=== PATIENT | male | born 1990 | race Caucasian/White ===

== ENCOUNTER → 2017-01-28 | Outpatient (CLI) | payer OTHER ==
[~2017-01-28] MED LIST: CELE20TA PO; TRAZ50TA11 PO; TRIL1TAB PO; no home meds
[2017-01-28 18:05] LABS: MEAN CORPUSCULAR HEMOGLOBIN 30.3 pg (27.0-33.0); MEAN CORPUSCULAR HGB CONC 32.8 g/dl (32.0-36.5); MEAN CORPUSCULAR VOLUME 92.5 fl (80.0-96.0); PLATELET COUNT, AUTOMATED 286 10^3/uL (150-450); WHITE BLOOD COUNT 10.6 10^3/uL (4.0-10.0)
[2017-01-28 18:15] LABS: ANION GAP 6 MEQ/L (8-16); BLOOD UREA NITROGEN 16 MG/DL (7-18); CALCIUM LEVEL 9.3 MG/DL (8.5-10.1); CARBON DIOXIDE LEVEL 30 MEQ/L (21-32); CHLORIDE LEVEL 103 MEQ/L (98-107); CREATININE FOR GFR 0.78 MG/DL (0.70-1.30); GLOMERULAR FILTRATION RATE > 60.0 (>60); GLUCOSE, FASTING 91 MG/DL (70-105); POTASSIUM SERUM 4.4 MEQ/L (3.5-5.1); SODIUM LEVEL 139 MEQ/L (136-145)
[2017-01-28 18:21] LABS: INR 0.91
== END ==
LOC: M LAB 16:23
PROVIDERS: ATTEND Urology
DX: Z01.818 Encounter for other preprocedural examination (principal); N50.9 Disorder of male genital organs, unspecified

== ENCOUNTER 2017-01-31 10:41 | Day surgery (SDC) | payer OTHER ==
[~2017-01-31] VITALS: Ht 177.8 cm; Wt 153.8 kg
[2017-01-31] MEDS ORDERED: LR 1,000 ML IV ONE (11:00)
[2017-01-31] MEDS ORDERED: BUPIVACAINE HCL 0.25% 30 ML VIAL As Ordered ONE (13:15)
[2017-01-31] MEDS ORDERED: LIDOCAINE 1% SDV INJ 30 ML VIAL As Ordered ONE (13:15)
[2017-01-31] MEDS ORDERED: fentaNYL 100 MCG/2 ML INJECTION (J3010) As Ordered ONE ×3 (15:15→17:24)
[2017-01-31] MEDS ORDERED: METOCLOPRAMIDE INJ 10MG/2ML VIAL (J2765) As Ordered ONE (15:15)
[2017-01-31] MEDS ORDERED: MIDAZOLAM INJ 2 MG/2 ML VIAL (J2250) As Ordered ONE (15:15)
[2017-01-31] MEDS ORDERED: PROPOFOL 200 MG/20 ML VIAL As Ordered ONE (15:15)
[2017-01-31] MEDS ORDERED: ONDANSETRON 4MG/2ML VIAL (J2405) As Ordered ONE (15:15)
[2017-01-31] MEDS ORDERED: LIDOCAINE 2% INJ 100 MG/5 ML SDV (FOR ANES.) As Ordered ONE (15:15)
[2017-01-31] MEDS ORDERED: dexameTHASONE 4 MG/ML 1ML VIAL (J1100) As Ordered ONE (16:03)
[2017-01-31] MEDS ORDERED: KETOROLAC 60 MG/2 ML VIAL (J1885) As Ordered ONE (16:42)
[2017-01-31] MEDS ORDERED: SUGAMMADEX SODIUM 500 MG/5 ML VIAL (BRIDION) As Ordered ONE (17:13)
[2017-01-31] MEDS: fentaNYL 100 MCG/2 ML INJECTION (J3010) IV PRN ×4 (17:30→17:45)
--- NOTE | 2017-01-31 17:39 | ROOPDOC ---
[facility] Report Of Operation Report of Operation DATE OF PROCEDURE: 01/31/17 PREPROCEDURE DIAGNOSIS: Left testicular mass. POSTPROCEDURE DIAGNOSIS: Left testicular mass. PROCEDURE: Left radical orchiectomy. SURGEON: Dr. Emanuel Winter SOLAR WATER HEATER INSTALLER: None. ANESTHESIA: General. OPERATIVE INDICATIONS: This is a 27-year-old male who was recently found to have an enlarged left testicle with multiple masses. Given the likelihood that he has testicular cancer, it was recommended that he be brought to the operating room today for the above-listed procedure. DESCRIPTION OF PROCEDURE: The patient was brought to the operating room, and general anesthesia was induced. Prophylactic antibiotics were infused. He was then placed in supine position and prepped and draped in the usual sterile fashion. At this point, a 7 cm incision was made overlying the left external ring. We then dissected down through the subcutaneous tissues using Bovie electrocautery. Once we got down to the external oblique aponeurosis, this was opened using Metzenbaum scissors. We made sure not to damage the ilioinguinal nerve. At this point, a right-angle clamp was passed posterior to the spermatic cord, and a Magda drain was wrapped around it twice. This was then clamped. We then delivered the testicle out of the scrotum and through our inguinal incision. Then gubernacular fibers were release using electrocautery. We continued to release fibers until the testicle was free from the scrotum. The spermatic cord was then traced up to the area where the Aydlett drain had been placed. We tried to make sure we had good hemostasis while doing this. The spermatic cord was then freed up to the level of the internal ring. At this point, a right-angle clamp was placed across the spermatic cord. The cord was then suture ligated with an #0 silk suture. This was cut long. The cord was then divided into two separate packets distal to our #0 silk suture ligature. These packets were then separately ligated with #0 silk sutures. The cord was then transected distal to the #0 silk sutures. The left testicle and spermatic cord were then handed off the table to sent for pathologic analysis. At this point, the wound was irrigated. We closed the external oblique fascia using a running #2-0 Vicryl suture. Next, subcutaneous tissues were reapproximated with interrupted #2-0 chromic sutures. Skin was then closed with subcuticular #4-0 Monocryl suture. Once the skin was closed, local anesthesia was administered. Dermabond was then applied to the incision, and this marked the conclusion of the procedure. The patient was then awakened from anesthesia and transported to the recovery room in stable condition. ESTIMATED BLOOD LOSS: 5 mL. COMPLICATIONS: None. SPECIMENS: Left testicle and spermatic cord. PLAN: The patient will be brought back to be seen in clinic in one to two weeks to go over pathology results and to discuss future treatment. EMANUEL WINTER MD Jan 31, 2017 17:39
[2017-01-31] MEDS ORDERED: ONDANSETRON 4MG/2ML VIAL (J2405) IV PRN (17:45)
[2017-01-31] MEDS ORDERED: PERCOCET 5MG/325MG TAB PO PRN ×2 (17:45)
[2017-01-31] MEDS ORDERED: LR 1,000 ML IV SCH (17:45)
[2017-01-31] MEDS ORDERED: HYDROmorphone HCL 1 MG/ML SYRINGE (J1170) As Ordered ONE (18:02)
[2017-01-31] MEDS: HYDROmorphone HCL 1 MG/ML SYRINGE (J1170) IV PRN ×5 (18:06→18:26)
[2017-01-31] MEDS ORDERED: fentaNYL 100 MCG/2 ML INJECTION (J3010) IV PRN (18:15)
[2017-01-31 20:21] VITALS: BP 132/76
== END 2017-01-31 20:24 | disposition home or self-care (01) ==
LOC: M SDC 10:41
PROVIDERS: ATTEND Urology
DX: C62.92 Malignant neoplasm of left testis, unspecified whether descended or undescended (principal); F41.9 Anxiety disorder, unspecified; F31.9 Bipolar disorder, unspecified; F17.210 Nicotine dependence, cigarettes, uncomplicated; Z79.899 Other long term (current) drug therapy; Z88.8 Allergy status to other drugs, medicaments and biological substances

== ENCOUNTER → 2017-02-25 | Outpatient (CLI) | payer OTHER ==
[~2017-02-25] MED LIST changes: -CELE20TA PO; +ISOVUE-370 76% 100ML VIAL (Q9967) As Ordered; -TRAZ50TA11 PO; -TRIL1TAB PO; -no home meds
[2017-02-25 14:38] LABS: LDH LACTATE DEHYDROGENASE 200 U/L (87-241)
[2017-02-25 17:01] LABS: ALPHA FETOPROTEIN TUMOR QUANT 1.4 NG/ML (<8.1)
[2017-02-27 00:07] LABS: HCG SERUM TUMOR MARKER QUANT < 1 mIU/mL (0-3)
== END ==
LOC: M LAB 13:19
DX: C62.90 Malignant neoplasm of unspecified testis, unspecified whether descended or undescended (principal)
CPT/HCPCS: Q9967

== ENCOUNTER → 2017-03-31 | Outpatient (CLI) | payer OTHER | LOC: M ONCR 13:13 | DX: C62.92 Malignant neoplasm of left testis, unspecified whether descended or undescended (principal) | CPT/HCPCS: 99201 ==

== ENCOUNTER 2020-06-14 11:12 | Emergency (ER) | payer SELFPAY ==
[~2020-06-14] VITALS: Ht 180.3 cm; Wt 150.0 kg
[~2020-06-14 11:12] MED LIST changes: +CELE20TA PO; -ISOVUE-370 76% 100ML VIAL (Q9967) As Ordered; +TRAZ-252 PO; +TRIL1TAB PO; +no home meds
[2020-06-14] MEDS ORDERED: METH-1164 (11:19)
[2020-06-14] MEDS ORDERED: IBUP-1022 (11:19)
[2020-06-14] MEDS ORDERED: ONDA4TAB6 PO (11:19)
[2020-06-14] MEDS ORDERED: NS 1,000 ML IV ONE (11:50)
[2020-06-14] MEDS ORDERED: ONDANSETRON 4MG/2ML VIAL IV ONE (11:50)
[2020-06-14 12:47] LABS: BASO % 0.4 % (0.0-1.0); EOS # 0.1 10^3/uL (0.0-0.5); EOS % 0.7 % (0.0-3.0); HEMATOCRIT 44.2 % (42.0-52.0); HEMOGLOBIN 14.4 g/dl (13.5-17.5); LYMPH # 1.7 10^3/uL (1.5-5.0); MEAN CORPUSCULAR HEMOGLOBIN 29.8 pg (27.0-33.0); MEAN CORPUSCULAR HGB CONC 32.6 g/dl (32.0-36.5); MEAN CORPUSCULAR VOLUME 91.3 fl (80.0-96.0); MONO # 0.9 10^3/uL (0.0-0.8); MONO % 8.9 % (2.0-8.0); NEUTROPHILS # 7.3 10^3/uL (1.5-8.5); NEUTROPHILS % 72.3 % (36.0-66.0); PLATELET COUNT, AUTOMATED 319 10^3/uL (150-450); RED BLOOD COUNT 4.84 10^6/uL (4.30-6.10); WHITE BLOOD COUNT 10.1 10^3/uL (4.0-10.0)
[2020-06-14 12:55] LABS: RSV AMPLIFICATION NEGATIVE (NEGATIVE)
[2020-06-14 13:08] LABS: ERYTHROCYTE SEDIMENTATION RATE 14 mm/hr (0-15)
[2020-06-14 13:18] LABS: ALBUMIN 3.9 GM/DL (3.2-5.2); ALT/SGPT 46 U/L (12-78); BILIRUBIN,DIRECT 0.1 MG/DL (0.0-0.2); BILIRUBIN,TOTAL 0.3 MG/DL (0.2-1.0); BLOOD UREA NITROGEN 14 MG/DL (7-18); C REACTIVE PROTEIN QUANTITATIV 0.66 MG/DL (0.00-0.30); CALCIUM LEVEL 9.7 MG/DL (8.5-10.1); CARBON DIOXIDE LEVEL 27 MEQ/L (21-32); CHLORIDE LEVEL 105 MEQ/L (98-107); CREATININE FOR GFR 0.74 MG/DL (0.70-1.30); GLOMERULAR FILTRATION RATE > 60.0 (>60); GLUCOSE, FASTING 122 MG/DL (70-100); LIPASE 46 U/L (73-393); POTASSIUM SERUM 4.2 MEQ/L (3.5-5.1); SODIUM LEVEL 139 MEQ/L (136-145); TOTAL PROTEIN 6.9 GM/DL (6.4-8.2)
[2020-06-14] MEDS: GASTROGRAFIN SOLUTION 30ML PO SCH ×2 (13:35→14:13)
[2020-06-14] MEDS ORDERED: ISOVUE-370 76% 100ML VIAL As Ordered ONE (15:04)
--- NOTE | 2020-06-14 15:32 | REP ---
INDICATION: bloody diarrhea, lower abd pain, hx of testicular cancer. COMPARISON: 02/25/2017 TECHNIQUE: Axial contrast-enhanced images from the lung bases to the pubic symphysis using 100 cc Isovue 370 intravenous contrast material. Coronal and sagittal reformations obtained. This CT examination was performed using the following dose reduction techniques: Automated exposure control, adjustment of mA and/or kv according to the patient's size, and the use of iterative reconstruction technique. FINDINGS: Lung bases are clear. Chronic elevation to the left hemidiaphragm is unchanged. Liver demonstrates diffuse fatty infiltration without focal hepatic lesion. The spleen, pancreas, gallbladder, left adrenal gland and bilateral kidneys are normal. Right adrenal gland demonstrates stable adenoma. The enteric system including stomach, small, and large bowel appears normal. No evidence for obstruction or acute inflammatory process. Normal terminal ileum and cecum are identified in the right lower quadrant. Pelvis demonstrates normal bladder and age-appropriate prostate/seminal vesicles. No ascites. No free air. No intraperitoneal or retroperitoneal adenopathy. Abdominal aorta and vasculature appear normal. Musculoskeletal structures are intact and without acute osseous abnormality. IMPRESSION: No acute abdominopelvic pathology appreciated. Hepatosteatosis. Stable benign right adrenal adenoma. <Electronically signed by Brandon Zarate > 06/14/20 1521
[2020-06-14 15:33] VITALS: BP 118/67
== END 2020-06-14 16:35 | disposition home or self-care (01) ==
LOC: M ED 11:12
DX: K62.5 Hemorrhage of anus and rectum (principal); R11.2 Nausea with vomiting, unspecified; R10.9 Unspecified abdominal pain; M54.5 Low back pain; D35.00 Benign neoplasm of unspecified adrenal gland; C62.92 Malignant neoplasm of left testis, unspecified whether descended or undescended; K76.0 Fatty (change of) liver, not elsewhere classified; F90.9 Attention-deficit hyperactivity disorder, unspecified type; F17.200 Nicotine dependence, unspecified, uncomplicated; Z88.8 Allergy status to other drugs, medicaments and biological substances; Z79.899 Other long term (current) drug therapy
CPT/HCPCS: 74177; 80048; 80076; 81001; 83690; 85025; 85652; 86140; 86850; 86900; 86901; 87631; 96361; 96374; 99284; J2405; Q9963; Q9967

== ENCOUNTER 2020-06-19 07:35 | Inpatient (IN) | payer SELFPAY ==
[~2020-06-19] VITALS: Ht 185.4 cm; Wt 175.7 kg
[~2020-06-19 07:35] MED LIST changes: +IBUP-1022; +METH-1164; +ONDA4TAB6 PO
[2020-06-19 08:45] LABS: BASO % 0.3 % (0.0-1.0); EOS # 0.1 10^3/uL (0.0-0.5); EOS % 0.8 % (0.0-3.0); HEMATOCRIT 45.7 % (42.0-52.0); HEMOGLOBIN 14.6 g/dl (13.5-17.5); LYMPH # 1.4 10^3/uL (1.5-5.0); LYMPH % 12.4 % (24.0-44.0); MEAN CORPUSCULAR HEMOGLOBIN 29.7 pg (27.0-33.0); MEAN CORPUSCULAR HGB CONC 31.9 g/dl (32.0-36.5); MEAN CORPUSCULAR VOLUME 93.1 fl (80.0-96.0); MONO # 1.2 10^3/uL (0.0-0.8); MONO % 10.7 % (2.0-8.0); NEUTROPHILS # 8.8 10^3/uL (1.5-8.5); NEUTROPHILS % 75.1 % (36.0-66.0); PLATELET COUNT, AUTOMATED 341 10^3/uL (150-450); RED BLOOD COUNT 4.91 10^6/uL (4.30-6.10); WHITE BLOOD COUNT 11.6 10^3/uL (4.0-10.0)
[2020-06-19 08:51] LABS: ALBUMIN 4.1 GM/DL (3.2-5.2); ALT/SGPT 44 U/L (12-78); BILIRUBIN,DIRECT 0.1 MG/DL (0.0-0.2); BILIRUBIN,TOTAL 0.3 MG/DL (0.2-1.0); BLOOD UREA NITROGEN 24 MG/DL (7-18); CALCIUM LEVEL 8.9 MG/DL (8.5-10.1); CARBON DIOXIDE LEVEL 28 MEQ/L (21-32); CHLORIDE LEVEL 108 MEQ/L (98-107); CREATININE FOR GFR 0.85 MG/DL (0.70-1.30); GLOMERULAR FILTRATION RATE > 60.0 (>60); GLUCOSE, FASTING 99 MG/DL (70-100); LIPASE 1244 U/L (73-393); POTASSIUM SERUM 4.2 MEQ/L (3.5-5.1); SODIUM LEVEL 141 MEQ/L (136-145); TOTAL PROTEIN 7.5 GM/DL (6.4-8.2)
[2020-06-19] MEDS ORDERED: MORPHINE 4 MG/ML 1ML VIAL/SYRINGE (J2270) IV ONE (09:00)
[2020-06-19] MEDS ORDERED: NS 1,000 ML IV ONE (09:00)
[2020-06-19] MEDS: DOCUSATE SODIUM 100MG CAPSULE PO SCH ×2 (09:00→20:15)
[2020-06-19] MEDS ORDERED: ONDANSETRON 4MG/2ML VIAL IV ONE (09:00)
[2020-06-19] MEDS ORDERED: ISOVUE-370 76% 100ML VIAL As Ordered ONE (09:10)
--- NOTE | 2020-06-19 09:48 | REP ---
INDICATION: diffuse abd pain, thoracic/lumbar back pain COMPARISON: None. TECHNIQUE: Axial contrast enhanced images from the thoracic inlet to the upper abdomen using aortic arterial angiographic technique with multiplanar re-formations. 100 ml Isovue 370 intravenous contrast material administered without complication followed by CT of the abdomen and pelvis. This CT examination was performed using the following dose reduction techniques: Automated exposure control, adjustment of mA and/or kv according to the patient's size, and use of iterative reconstruction technique. FINDINGS: Thoracic aorta is normal in appearance and size without aneurysm or dissection. Pulmonary arteries are unremarkable and without embolus. Heart and pericardium are normal. Bilateral lung menjivar are clear and without consolidation, effusion, or pneumothorax. Tracheobronchial tree is patent. No obvious adenopathy. IMPRESSION: Normal thoracic aorta without aneurysm or dissection. No evidence for pulmonary embolus. No acute mediastinal or pleural parenchymal process. <Electronically signed by Brandon Zarate > 06/19/20 0935
--- NOTE | 2020-06-19 09:55 | REP ---
INDICATION: diffuse abd pain, thoracic/lumbar back pain. COMPARISON: 02/25/2017 TECHNIQUE: Axial contrast-enhanced images from the lung bases to the pubic symphysis using 100 cc Isovue 370 intravenous contrast material. Coronal and sagittal reformations obtained. This CT examination was performed using the following dose reduction techniques: Automated exposure control, adjustment of mA and/or kv according to the patient's size, and the use of iterative reconstruction technique. FINDINGS: Liver demonstrates mild fatty infiltration without focal hepatic lesion. Spleen, pancreas, gallbladder, left adrenal gland and bilateral kidneys are normal. 2 cm right adrenal lesion consistent with adenoma and unchanged compared to 2018. The enteric system including stomach, small, and large bowel appears normal. No evidence for obstruction or acute inflammatory process. Normal terminal ileum and appendix are identified in the right lower quadrant. Pelvis demonstrates normal bladder and age-appropriate prostate/seminal vesicles. No ascites. No free air. No intraperitoneal or retroperitoneal adenopathy. Abdominal aorta and vasculature appear normal. Musculoskeletal structures are intact and without acute osseous abnormality. IMPRESSION: No acute abdominopelvic pathology appreciated. Benign right adrenal adenoma remains stable compared with 2018. <Electronically signed by Brandon Zarate > 06/19/20 0951
[2020-06-19 09:59] LABS: AMYLASE 185 U/L (25-115); CK-MB VALUE MASS < 1.0 NG/ML (<3.6); CPK CREATINE PHOSPHOKINASE 53 U/L (39-308); MB/CK RELATIVE INDEX 1.89 (< OR =4); TROPONIN I < 0.02 NG/ML (< 0.10)
--- NOTE | 2020-06-19 10:08 | REP ---
INDICATION: chest pain. COMPARISON: Comparison radiograph 25 February 2017.. TECHNIQUE: Portable AP sitting chest x-ray. FINDINGS: Left hemidiaphragm is monitor it Pia elevated. This is unchanged. Pleural angles are sharp. No infiltrate is seen. Cardiomediastinal silhouette is unchanged. Pulmonary vasculature is cephalized. IMPRESSION: Elevated left hemidiaphragm. Cephalization. No infiltrate seen. <Electronically signed by Wing Morgan > 06/19/20 1000
[2020-06-19] MEDS ORDERED: MOM 30ML SUSPENSION UDC PO PRN (11:00)
[2020-06-19 11:09] LABS: ETHYL ALCOHOL (ETHANOL) < 0.003 % (0.000-0.010); TRIGLYCERIDES LEVEL 110 MG/DL (<150)
[2020-06-19] MEDS: PANTOPRAZOLE 40MG VIAL (C9113 PER 1) IV SCH (11:52)
[2020-06-19] MEDS: NS 1,000 ML IV SCH ×3 (11:52→19:15)
[2020-06-19] MEDS: SUCRALFATE 1 GM TAB PO SCH ×3 (11:52→20:15)
[2020-06-19 12:17] LABS: HEMATOCRIT 41.2 % (42.0-52.0); HEMOGLOBIN 12.9 g/dl (13.5-17.5)
[2020-06-19 12:49] LABS: CK-MB VALUE MASS < 1.0 NG/ML (<3.6); CPK CREATINE PHOSPHOKINASE 46 U/L (39-308); MB/CK RELATIVE INDEX 2.17 (< OR =4); TROPONIN I < 0.02 NG/ML (< 0.10)
--- NOTE | 2020-06-19 13:14 | REP ---
INDICATION: Pancreatitis. COMPARISON: Comparison is made with today's CT study of the abdomen and pelvis.. TECHNIQUE: Right upper quadrant sonography. Exam quality is inhibited by patient body habitus. FINDINGS: Scanning through the right upper quadrant of the abdomen demonstrates a normal sized, thin-walled gallbladder without evidence of stone or polyp. Common bile duct is normal measuring 0.66 cm in greatest diameter. No focal liver lesion is seen. There is poor insonation of the liver generally consistent with fatty infiltration. This corresponds with the CT. Liver size is normal. The pancreas is partially obscured by gas. No pancreatic abnormality is observed. No right renal abnormality is seen. There is no evidence of ascites. The right kidney measures 14.2 x 6.4 x 6.8 cm. A 2.3 x 3.2 x 3.1 cm slightly hypoechoic right suprarenal nodule is seen corresponding with the right adrenal nodule observed on today's CT study. IMPRESSION: Small right adrenal nodule noted as on CT. Evidence of fatty infiltration of the liver.. <Electronically signed by Wing Morgan > 06/19/20 [id number]
[2020-06-19 13:36] VITALS: BP 130/75
[2020-06-19] MEDS: ONDANSETRON 4MG/2ML VIAL IV SCH ×3 (13:36→20:15)
[2020-06-19] MEDS: MORPHINE 4 MG/ML 1ML VIAL/SYRINGE (J2270) IV PRN ×2 (13:37→20:16)
--- NOTE | 2020-06-19 14:29 | HPEPDOC ---
[facility] Medical History & Physical Date of Admission June 19, 2020 Date of Service: June 19, 2020 History and Physical Chief complaint: Who presented to the emergency room with complaints of abdominal pain History of present illness: Patient is a 30-year-old male who presented to the emergency room with complaints of persistent back and abdominal pain. Patient reported that last Tuesday he was reporting back pain and went to the [facility] patient received a CT scan that was essentially negative. Was given a dose of morphine and subsequently sent home. Patient began experiencing abdominal pain and presented back to [facility] on and patient was discharged home without any additional workup. On Tuesday. Patient reported that he continue to have abdominal pain and came to [facility] where he had a CT scan of his abdomen that had revealed an adrenal adenoma that was consistent with findings 2018. Lab work was unrevealing and patient was sent home with outpatient follow-up with primary care provider. Patient is presented to the emergency room today, which is his essentially fourth visit in the duration of the week with complaints of persistent abdominal and lower back pain associated with nausea and vomiting. Patient has reported that nausea and vomiting. Has started on Tuesday and has progressed. Hes reported 8 episodes of vomiting per day without any evidence of blood, described as clear. Patient has reported that he is experiencing lower abdominal pain described as sharp, stabbing nature, described as a 7/10 with mild alleviation with morphine received in the emergency room, patient also reports radiation to his back, described as throbbing-like pain 8/10. Patient denies any urinary discomfort. Has not expressed any recent fevers or chills. Since Tuesday, patient has reported a few episodes of blood in his stool, but also reports that this has resolved since Tuesday.. She reports that his last b owel movement was this morning, described as dark but formed. Patient denies any significant shortness of breath or change in his baseline cough but does describe stabbing chest pain when he vomits. This has essentially resolved at this time. Patient reports that his last meal was yesterday. 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 Reports rare alcohol use, last use was 4 weeks ago. 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 Review of Systems: 10 point review of systems complete, all negative otherwise stated in HPI Physical exam: - Vitals: BP [130/75], HR [71], RR [18], Sat [99%RA], Temp [96.5F] - General: Lying in bed, Reporting abdominal pain, Speaking in full sentences, AAOx3 - HEENT: NC, AT, PERRLA - CVS: RRR, +S1S2 - Lungs: Fair air entry bilaterally, No appreciable wheezing / rales / rhonchi - Abdomen: Soft, Non-distended, Tenderness diffusely, no guarding or rigidity, morbid obesity - Extremities: No lower extremity edema, No calf tenderness - Neuro: No focal motor or sensory deficit - Skin: No visible rashes Labs: See below Imaging: CT abdomen / pelvis 5/6: No acute abdominopelvic pathology appreciated. Benign right adrenal adenoma remains stable compared with 2018. CTA chest 5/6: Normal thoracic aorta without aneurysm or dissection. No evidence for pulmonary embolus. CXR 5/6: Elevated left hemidiaphragm. Cephalization. No infiltrate seen. Liver US 5/6: Small right adrenal nodule noted as on CT. Evidence of fatty infiltration of the liver. EKG: See below Assessment and Plan: Abdominal / back pain - possibly 2/2 pancreatitis, possibly 2/2 colitis - Patient is reporting progressive back/abdominal pain that has been progressing over the duration of 1 week - Reported associated nausea and vomiting - Lipase was noted to be elevated >3x upper limit of normal - Imaging without any significant abnormalities - Will check lipase / triglyceride/ ethanol level / urine drug screen - Will check liver US - Will keep patient NPO - Will start fluids and symptomatic control with Morphine and Zofran Reported dark stools - Will check stool for occult blood - Will trend H&H - Will start Protonix / Carafate Leukocytosis - Review of systems is negative for any source of infection - Will check blood cultures and pro-calcitonin - Will hold off on antibiotics at this time 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) - Currently not on ASA Testicular cancer - Seminoma Diagnosed in 2017 - s/p Left orchiectomy 2017 with 2 sessions of radiation Anxiety - Currently not on any medications Gastrointestinal prophylaxis - Will start Protonix / Carafate - See above DVT prophylaxis - Will start TEDs/Sequentials Vital Signs Vital Signs Date Time Temp Pulse Resp B/P (MAP) Pulse Ox O2 Delivery O2 Flow Rate FiO2 06/19/20 13:37 18 Room Air 06/19/20 13:36 96.5 71 130/75 (93) 99 Laboratory Data Labs 24H Laboratory Tests 2 06/19/20 08:15: Immature Granulocyte % (Auto) 0.7, Neutrophils (%) (Auto) 75.1H, Lymphocytes (%) (Auto) 12.4L, Monocytes (%) (Auto) 10.7H, Eosinophils (%) (Auto) 0.8, Basophils (%) (Auto) 0.3, Neutrophils # (Auto) 8.8H, Lymphocytes # (Auto) 1.4L, Monocytes # (Auto) 1.2H, Eosinophils # (Auto) 0.1, Basophils # (Auto) 0.0, Nucleated Red Blood Cells % (auto) 0.0, Anion Gap 5L, Glomerular Filtration Rate > 60.0, Calcium Level 8.9, Total Bilirubin 0.3, Direct Bilirubin 0.1, Aspartate Amino Transf (AST/SGOT) 13, Alanine Aminotransferase (ALT/SGPT) 44, Alkaline Phosphatase 120H, Total Creatine Kinase 53, Creatine Kinase MB < 1.0, Creatine Kinase MB Relative Index 1.89, Troponin I < 0.02, Total Protein 7.5, Albumin 4.1, Albumin/Globulin Ratio 1.2, Triglycerides Level 110, Amylase Level 185H, Lipase 1244H, Ethyl Alcohol Level < 0.003 06/19/20 09:31: Urine Color YELLOW, Urine Appearance CLEAR, Urine pH 6.0, Urine Specific [place] 1.028, Urine Protein NEGATIVE, Urine Glucose (UA) NEGATIVE, Urine Ketones NEGATIVE, Urine Blood NEGATIVE, Urine Nitrite NEGATIVE, Urine Bilirubin NEGATIVE, Urine Urobilinogen 0.2, Urine Leukocyte Esterase NEGATIVE, Urine WBC (Auto) 1, Urine RBC (Auto) 0, Urine Hyaline Casts (Auto) 0, Urine Bacteria (Auto) NEGATIVE, Urine Squamous Epithelial Cells 0, Urine Mucus (Auto) SMALL, Urine Sperm (Auto) 06/19/20 12:04: Total Creatine Kinase 46, Creatine Kinase MB < 1.0, Creatine Kinase MB Relative Index 2.17, Troponin I < 0.02, Lactic Acid Level 1.5 CBC/BMP Laboratory Tests 06/19/20 08:15 06/19/20 12:04 Microbiology Microbiology 06/19/20 Blood Culture, Received Pending 06/19/20 Respiratory Virus Panel (PCR) ([facility]ITA) - Final, Complete Home Medications Scheduled PRN Ondansetron (Ondansetron Odt) 4 Mg Tab.rapdis, 4 MG PO Q6H PRN for NAUSEA OR VOMITING Allergies Coded Allergies: isopropyl alcohol (Verified Allergy, Unknown, 06/14/20) MELBA LOBO MD June 19, 2020 14:29
[2020-06-19 15:27] LABS: AMPHETAMINES LEVEL URINE NEGATIVE (NEGATIVE); BARBITURATES URINE NEGATIVE (NEGATIVE); BENZODIAZEPINES URINE NEGATIVE (NEGATIVE); CANNABINOIDS URINE POSITIVE (NEGATIVE); COCAINE METABOLITE URINE NEGATIVE (NEGATIVE); METHADONE URINE NEGATIVE (NEGATIVE); OPIATES URINE POSITIVE (NEGATIVE); PHENCYCLIDINE URINE NEGATIVE (NEGATIVE)
[2020-06-19 16:00] VITALS: BP 105/56
--- NOTE | 2020-06-19 17:09 | ECGEPIP ---
[facility] - ED Test Date: 2020-06-19 Pat Name: ARTEMIO JUNE Department: Room: [place] [address] Gender: Male Central Supply Tech: ELLIOTT : [id number] Requested By: LEODAN Barton PA-C Order Number: [id number] Reading MD: Robert Guzman Measurements Intervals [place] Rate: 75 P: 47 [place]: 138 QRS: 68 QRSD: 110 T: 49 QT: 376 QTc: 419 Interpretive Statements Sinus rhythm with marked sinus arrhythmia Comparison tracing not on file Electronically Signed on 06-19-2020 17:09:32 EDT by Robert Guzman
[2020-06-19 18:32] LABS: HEMATOCRIT 39.2 % (42.0-52.0); HEMOGLOBIN 12.5 g/dl (13.5-17.5)
[2020-06-19 18:41] LABS: CK-MB VALUE MASS < 1.0 NG/ML (<3.6); CPK CREATINE PHOSPHOKINASE 38 U/L (39-308); MB/CK RELATIVE INDEX 2.63 (< OR =4); TROPONIN I < 0.02 NG/ML (< 0.10)
[2020-06-19 20:00] VITALS: BP 112/79
[2020-06-20] VITALS: BP 129/61
[2020-06-20] MEDS: NS 1,000 ML IV SCH ×5 (00:08→12:45)
[2020-06-20 00:11] LABS: HEMATOCRIT 37.8 % (42.0-52.0); HEMOGLOBIN 12.3 g/dl (13.5-17.5)
[2020-06-20] MEDS: PANTOPRAZOLE 40MG VIAL (C9113 PER 1) IV SCH ×2 (01:16→12:53)
[2020-06-20] MEDS: ONDANSETRON 4MG/2ML VIAL IV SCH ×6 (01:16→20:52)
[2020-06-20 04:00] VITALS: BP 116/69
[2020-06-20] MEDS: MORPHINE 4 MG/ML 1ML VIAL/SYRINGE (J2270) IV PRN ×2 (04:41→09:01)
[2020-06-20 05:21] LABS: BASO % 0.2 % (0.0-1.0); EOS # 0.1 10^3/uL (0.0-0.5); EOS % 1.3 % (0.0-3.0); HEMOGLOBIN 12.4 g/dl (13.5-17.5); LYMPH # 1.9 10^3/uL (1.5-5.0); LYMPH % 21.3 % (24.0-44.0); MEAN CORPUSCULAR HGB CONC 31.8 g/dl (32.0-36.5); MEAN CORPUSCULAR VOLUME 94.2 fl (80.0-96.0); MONO # 0.9 10^3/uL (0.0-0.8); MONO % 10.5 % (2.0-8.0); NEUTROPHILS # 5.8 10^3/uL (1.5-8.5); PLATELET COUNT, AUTOMATED 274 10^3/uL (150-450); RED BLOOD COUNT 4.14 10^6/uL (4.30-6.10); WHITE BLOOD COUNT 8.8 10^3/uL (4.0-10.0)
[2020-06-20 05:51] LABS: BLOOD UREA NITROGEN 9 MG/DL (7-18); CALCIUM LEVEL 8.9 MG/DL (8.5-10.1); CARBON DIOXIDE LEVEL 27 MEQ/L (21-32); CHLORIDE LEVEL 109 MEQ/L (98-107); CREATININE FOR GFR 0.63 MG/DL (0.70-1.30); GLOMERULAR FILTRATION RATE > 60.0 (>60); GLUCOSE, FASTING 100 MG/DL (70-100); POTASSIUM SERUM 3.9 MEQ/L (3.5-5.1); SODIUM LEVEL 141 MEQ/L (136-145)
[2020-06-20 08:00] VITALS: BP 136/81
[2020-06-20] MEDS: SUCRALFATE 1 GM TAB PO SCH ×4 (08:03→20:52)
[2020-06-20] MEDS: DOCUSATE SODIUM 100MG CAPSULE PO SCH ×3 (09:01→20:53)
--- NOTE | 2020-06-20 09:47 | IPNPDOC ---
Text Note Date of Service The patient was seen on 06/20/20. NOTE Subjective: Patient is a 30-year-old male who presented to the emergency room with complaints of persistent back and abdominal pain. Patient has been experiencing back/abdominal pain since last week Tuesday and has progressed to nausea and vomiting. Upon arrival to emergency room, patient was found to have an elevated lipase and was admitted to the hospitalist service for suspected acute pancreatitis. Patient was seen and examined at the bedside. Patient has reported improvement of his symptoms. He denies any vomiting but does report nausea. Reports that his abdominal pain has had significant improvement. Denies any chest pain, shortness of breath, palpitations. Reports that he is hungry. Objective: Vitals (See below) General: Patient is lying in bed, appears to be comfortable, not in any acute distress, is oriented to person, place and time HEENT: NC, AT CVS: +S1S2 Lungs: Fair air entry b/l, no evidence of wheezing, rhonchi or rales Abdomen: Soft, nondistended and nontender Extremities: No evidence of edema, - Calf tenderness Imaging: CT abdomen / pelvis 06/19: No acute abdominopelvic pathology appreciated. Benign right adrenal adenoma remains stable compared with 2018. CTA chest 06/19: Normal thoracic aorta without aneurysm or dissection. No evidence for pulmonary embolus. CXR /6: Elevated left hemidiaphragm. Cephalization. No infiltrate seen. Liver US 06/19: Small right adrenal nodule noted as on CT. Evidence of fatty infiltration of the liver. Assessment and plan: Abdominal / back pain - possibly 2/2 acute pancreatitis, possibly 2/2 Cannibis induced hyperemesis syndrome, less likely 2/2 colitis - Patient is reporting progressive back/abdominal pain that has been progressing over the duration of 1 week - This morning patient has reported improvement of her symptoms. No more vomiting reported - Lipase was noted to be elevated >3x upper limit of normal - Triglyceride / ethanol level are wnl; Urine drug screen positive for Opiates / Cannabinoids - Imaging without any significant abnormalities - Will advance diet to clears today - Will reduce rate of fluids; will reduce dose / frequency of Morphine Reported dark stools - No evidence of bleeding - Hg has trended down - possibly 2/2 dilutional etiology - c/w Protonix / Carafate s/p Leukocytosis - Review of systems is negative for any source of infection - Blood cultures 06/19: Pending - Pro-calcitonin pending - Will hold off on antibiotics at this time 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) - Currently not on ASA Testicular cancer - Seminoma Diagnosed in 2017 - s/p Left orchiectomy 2017 with 2 sessions of radiation Anxiety - Currently not on any medications DVT prophylaxis - c/w TEDs/Sequentials Disposition: - Anticipate discharge within 24-48 hours VS,Fishbone, I+O VS, Fishbone, I+O Laboratory Tests 06/19/20 12:04 06/19/20 17:59 06/20/20 00:05 06/20/20 04:57 Vital Signs Date Time Temp Pulse Resp B/P (MAP) Pulse Ox O2 Delivery O2 Flow Rate FiO2 06/20/20 09:01 20 Room Air 06/20/20 08:00 97.2 70 136/81 (99) 96 I&O- Last 24 Hours up to 6 AM 06/20/20 06:00 Intake Total 4380 ml Output Total 4100 ml Balance 280 ml MELBA LOBO MD June 20, 2020 09:47
[2020-06-20 12:00] VITALS: BP 155/87
[2020-06-20 16:00] VITALS: BP 137/91
[2020-06-20] MEDS: MORPHINE 2 MG/ML 1ML VIAL (J2270) IV PRN (16:32)
[2020-06-20 20:00] VITALS: BP 136/84
[2020-06-21] VITALS: BP 133/60
[2020-06-21] MEDS: NS 1,000 ML IV SCH (00:22)
[2020-06-21] MEDS: PANTOPRAZOLE 40MG VIAL (C9113 PER 1) IV SCH ×2 (00:23→12:55)
[2020-06-21] MEDS: ONDANSETRON 4MG/2ML VIAL IV SCH ×6 (00:23→20:32)
[2020-06-21 04:00] VITALS: BP 124/80
[2020-06-21 05:18] LABS: BASO % 0.2 % (0.0-1.0); EOS # 0.1 10^3/uL (0.0-0.5); EOS % 1.1 % (0.0-3.0); HEMATOCRIT 41.5 % (42.0-52.0); HEMOGLOBIN 12.8 g/dl (13.5-17.5); LYMPH # 1.8 10^3/uL (1.5-5.0); LYMPH % 19.2 % (24.0-44.0); MEAN CORPUSCULAR HEMOGLOBIN 29.9 pg (27.0-33.0); MEAN CORPUSCULAR HGB CONC 30.8 g/dl (32.0-36.5); MONO # 1.1 10^3/uL (0.0-0.8); MONO % 11.2 % (2.0-8.0); NEUTROPHILS # 6.4 10^3/uL (1.5-8.5); NEUTROPHILS % 67.8 % (36.0-66.0); PLATELET COUNT, AUTOMATED 236 10^3/uL (150-450); RED BLOOD COUNT 4.28 10^6/uL (4.30-6.10); WHITE BLOOD COUNT 9.4 10^3/uL (4.0-10.0)
[2020-06-21] MEDS: MORPHINE 2 MG/ML 1ML VIAL (J2270) IV PRN (05:21)
[2020-06-21 05:39] LABS: BLOOD UREA NITROGEN 5 MG/DL (7-18); CALCIUM LEVEL 8.6 MG/DL (8.5-10.1); CARBON DIOXIDE LEVEL 28 MEQ/L (21-32); CHLORIDE LEVEL 109 MEQ/L (98-107); CREATININE FOR GFR 0.66 MG/DL (0.70-1.30); GLOMERULAR FILTRATION RATE > 60.0 (>60); GLUCOSE, FASTING 92 MG/DL (70-100); POTASSIUM SERUM 3.3 MEQ/L (3.5-5.1); SODIUM LEVEL 140 MEQ/L (136-145)
[2020-06-21 08:00] VITALS: BP 132/81
[2020-06-21] MEDS: ACETAMINOPHEN TAB 650MG DOSE (2X325MG) PO PRN (08:13)
[2020-06-21] MEDS: SUCRALFATE 1 GM TAB PO SCH ×4 (08:13→20:32)
[2020-06-21] MEDS ORDERED: traMADol 50 MG TAB PO PRN (08:20)
[2020-06-21] MEDS: DOCUSATE SODIUM 100MG CAPSULE PO SCH ×2 (09:00→20:32)
[2020-06-21] MEDS ORDERED: POTASSIUM CHLORIDE 10 MEQ SR TABLET PO ONE (09:00)
[2020-06-21] MEDS ORDERED: ISOVUE-370 76% 100ML VIAL As Ordered ONE (09:11)
--- NOTE | 2020-06-21 10:43 | REPVR ---
PROCEDURE INFORMATION: Exam: CT Angiography Abdomen and Pelvis With Contrast, GI Bleeding Exam date and time: 06/21/2020 9:26 AM Age: 30 years old Clinical indication: Other: Evaluate for ischemic colitis TECHNIQUE: Imaging protocol: Computed tomographic angiography of the abdomen and pelvis with contrast. 3D rendering (Not supervised by radiologist): MIP and/or 3D reconstructed images were created by the technologist. Radiation optimization: All CT scans at this facility use at least one of these dose optimization techniques: automated exposure control; mA and/or kV adjustment per patient size (includes targeted exams where dose is matched to clinical indication); or iterative reconstruction. Contrast material: ISOVUE 370; Contrast volume: 100 ml; Contrast route: INTRAVENOUS (IV); COMPARISON: 1. CT ABD/PEL W/IV CONTRAST ONLY 06/19/2020 9:[address] ABD/PEL W/IV ORAL CONTRAS 06/14/2020 3:04:[address] ABD PELVIS W/O FOL BY WIT 02/25/2017 2:18:17 PM FINDINGS: Lungs: There is bibasilar discoid atelectasis or scar. There is also increased lingular opacity at the lung base, favor nodular atelectasis although pneumonia could contribute to this appearance. Aorta: No aortic aneurysm. No aortic dissection. Celiac trunk and mesenteric arteries: No occlusion or significant stenosis. Renal arteries: No occlusion or significant stenosis. Right iliac arteries: No occlusion or significant stenosis. Left iliac arteries: No occlusion or significant stenosis. Liver: There is diffuse fatty liver change with minimal focal sparing at the gallbladder bed. Gallbladder and bile ducts: There is vicarious contrast excretion in the gallbladder. No biliary ductal dilatation. Pancreas: Unremarkable. No mass. No ductal dilation. Spleen: Unremarkable. No splenomegaly. Adrenal glands: 2.8 x 1.3 cm right adrenal mass with Hounsfield units from 42-50. This is more dense than its expected for a fat containing adenoma, but is stable in size dating back to 02/25/2017 and therefore most likely a lipid poor adenoma. Left adrenal gland is unremarkable. 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 Stomach and bowel: There is a small amount of new radiodense material in the gastric fundus and less so in the more distal stomach. Small radiodense foci in the true, 3 in number, measuring 2-6 mm, which appear to be ingested radiodense material as 3 foci were located more proximally in the right colon on 06/19/2020. There is no bowel dilatation to indicate obstruction. No pneumatosis. Small amount of radiodense material into segments of a mid small bowel loop in the left abdomen on series 401, images 84 and 81, which may be ingested radiodense material previously seen in the distal stomach. Appendix: Appendix is not seen. No pericecal inflammatory process. Intraperitoneal space: Unremarkable. No free air. No significant fluid collection. Lymph nodes: There are multiple small periaortic lymph nodes particularly on the left, similar in size to prior studies. There also very small central mesenteric and right lower quadrant nodes. Portacaval lymph node is mildly enlarged at 12 mm, similar to recent studies, but slightly larger than on 02/25/2017. There are small peripancreatic and periportal nodes similar to recent studies but slightly larger than on 02/25/2017. There are small bilateral inguinal lymph nodes. Urinary bladder: Unremarkable. No mass. Reproductive: The vessels of the left spermatic cord truncated rather abruptly in the left inguinal region, a subtle finding. Review of older studies shows a history of testicular cancer and left orchiectomy. Bones/joints: No acute osseous abnormality. Soft tissues: The appearance of hazy increased density in the subcutaneous fat in the right flank may be artifactual, at the edge of the field of view and only partially included. Small noninflamed fat containing umbilical hernia. IMPRESSION: 1. Small amount of radiodense material in the stomach, particularly at the gastric fundus, most likely recently ingested radiodense material such as bismuth. Recommend correlation with recent ingestions, as intraluminal gastric hemorrhage could alternatively cause this appearance. Also suggest correlation with patient history of melena or rectal bleeding. Fecal occult blood testing could be considered at clinical discretion. Smaller foci of increased density in mid small bowel and transverse colon are likely small volume radiodense ingested material, which has clearly moved in the colon since 06/19/2020. 2. Multiple small lymph nodes in the abdomen and pelvis, 1 of which is mildly enlarged in the portacaval region, similar to recent studies but slightly increased in size since 02/25/2017. Small nonenlarged nodes in the peripancreatic and periportal region are similar to recent studies but slightly larger than on 02/25/2017. 3. Diffuse fatty liver change. 4. Right adrenal mass which is stable in size dating back to 02/25/2017, likely a lipid poor adenoma. 5. Small noninflamed fat containing umbilical hernia likely present. 6. No atherosclerosis or arterial occlusion noted. Electronically signed by: Arleth Townsend On 06/21/2020 10:43:12 AM
[2020-06-21] MEDS ORDERED: PERCOCET 5MG/325MG TAB PO PRN ×2 (11:00)
--- NOTE | 2020-06-21 11:05 | IPNPDOC ---
Text Note Date of Service The patient was seen on 06/21/20. NOTE Subjective: Patient is a 30-year-old male who presented to the emergency room with complaints of persistent back and abdominal pain. Patient has been experiencing back/abdominal pain since last week Tuesday and has progressed to nausea and vomiting. Upon arrival to emergency room, patient was found to have an elevated lipase and was admitted to the hospitalist service for suspected acute pancreatitis. Patient was seen and examined at the bedside. Patient has reported that he continues to experience lower back and bilateral lower abdominal pain had reported an episode of vomiting yesterday. Denies any chest pain, shortness breath, palpitations. Denies any urinary discomfort. This morning patient had reported blood in his stool that occurred at 4 AM. No bowel movements since that point. Objective: Vitals (See below) General: Patient is laying flat in bed, reports some back and abdominal discomfort is oriented to person, place and time HEENT: No cephalic and atraumatic CVS: +S1S2 Lungs: Air entry is fair bilaterally without any evidence of wheezing, crackles or rhonchi Abdomen: Abdomen remains soft without any distention, there is tenderness at bilateral lower quadrants Extremities: LE are without edema Imaging: CT abdomen / pelvis 06/19: No acute abdominopelvic pathology appreciated. Benign right adrenal adenoma remains stable compared with 2018. CTA chest 06/19: Normal thoracic aorta without aneurysm or dissection. No evidence for pulmonary embolus. CXR 06/19: Elevated left hemidiaphragm. Cephalization. No infiltrate seen. Liver US 06/19: Small right adrenal nodule noted as on CT. Evidence of fatty infiltration of the liver. CTA abdomen / pelvis 06/21: 1. Small amount of radiodense material in the stomach, particularly at the gastric fundus, most likely recently ingested radiodense material such as bismuth. Recommend correlation with recent ingestions, as intraluminal gastric hemorrhage could alternatively cause this appearance. Also suggest correlation with patient history of melena or rectal bleeding. Fecal occult blood testing could be considered at clinical discretion. Smaller foci of increased density in mid small bowel and transverse colon are likely small volume radiodense ingested material, which has clearly moved in the colon since 06/19/2020. 2. Multiple small lymph nodes in the abdomen and pelvis, 1 of which is mildly enlarged in the portacaval region, similar to recent studies but slightly increased in size since 02/25/2017. Small nonenlarged nodes in the peripancreatic and periportal region are similar to recent studies but slightly larger than on 02/25/2017. 3. Diffuse fatty liver change. 4. Right adrenal mass which is stable in size dating back to 02/25/2017, likely a lipid poor adenoma. 5. Small noninflamed fat containing umbilical hernia likely present. 6. No atherosclerosis or arterial occlusion noted. Assessment and plan: Abdominal / back pain - possibly 2/2 acute pancreatitis, possibly 2/2 Cannibis induced hyperemesis syndrome, less likely 2/2 colitis - Patient is reporting progressive back/abdominal pain that has been progressing over the duration of 1 week - Improvement in symptoms yesterday; but still reporting worsening pain today - Lipase was noted to be elevated >3x upper limit of normal - Triglyceride / ethanol level are wnl; Urine drug screen positive for Opiates / Cannabinoids - CTA completed today with questionable radiodense material in stomach - Will get MRI LS spine today - Will keep patient NPO for now - s/p IV fluids - Will adjust pain contort - Consulted gastroenterology for further input Reported dark stools - Reported blood in stool this morning - Hg has trended down - possibly 2/2 dilutional etiology; but has remained stable thus far - Will continue H&H trend - Occult blood negative - c/w Protonix / Carafate s/p Leukocytosis - Review of systems is negative for any source of infection - Blood cultures 06/19: Pending - Pro-calcitonin negative - Will hold off on antibiotics at this time 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) - Currently not on ASA Right adrenal mass - Imaging reports stable in size dating back to 02/25/2017, likely a lipid poor adenoma - Will have outpatient follow up with PCP Testicular cancer - Seminoma Diagnosed in 2017 - s/p Left orchiectomy 2017 with 2 sessions of radiation Anxiety - Currently not on any medications DVT prophylaxis - c/w TEDs/Sequentials Disposition: - Awaiting clinical improvement Enrique JAQUEZ, I+O Enrique JAQUEZ I+O Laboratory Tests 06/21/20 04:55 Vital Signs Date Time Temp Pulse Resp B/P (MAP) Pulse Ox O2 Delivery O2 Flow Rate FiO2 06/21/20 09:31 18 Room Air 06/21/20 08:00 97.4 71 132/81 (98) 95 I&O- Last 24 Hours up to 6 AM 06/21/20 06:00 Intake Total 4500 ml Output Total 4650 ml Balance -150 ml MELBA LOBO MD June 21, 2020 11:05
[2020-06-21 11:45] VITALS: BP 147/93
[2020-06-21 11:50] LABS: HEMOGLOBIN 12.9 g/dl (13.5-17.5)
--- NOTE | 2020-06-21 13:24 | REPVR ---
PROCEDURE INFORMATION: Exam: MR Lumbar Spine Without Contrast Exam date and time: 06/21/2020 12:30 PM Age: 30 years old Clinical indication: Low back pain; Additional info: Severe lower back pain TECHNIQUE: Imaging protocol: Multiplanar magnetic resonance images of the lumbar spine without intravenous contrast. COMPARISON: No relevant prior studies available. FINDINGS: Vertebrae: Unremarkable. Spinal cord: Normal signal. No cord compression. L1-L2: No significant disc disease. No significant spinal canal stenosis. No neural foraminal stenosis. L2-L3: No significant disc disease. No significant spinal canal stenosis. No neural foraminal stenosis. L3-L4: No significant disc disease. No significant spinal canal stenosis. No neural foraminal stenosis. L4-L5: There is mild disc bulging. Disc bulging extends into both neural foramen causing mild bilateral neural foraminal narrowing. L5-S1: No significant disc disease. No significant spinal canal stenosis. No neural foraminal stenosis. Soft tissues: Unremarkable. IMPRESSION: Unremarkable spine. Please see details above. Electronically signed by: Marcelo Boyd On 06/21/2020 13:24:04 PM
[2020-06-21 16:00] VITALS: BP 145/90
[2020-06-21 18:07] LABS: HEMATOCRIT 39.3 % (42.0-52.0); HEMOGLOBIN 12.7 g/dl (13.5-17.5)
[2020-06-21 20:00] VITALS: BP 129/87
[2020-06-21] MEDS: CYCLOBENZAPRINE 10MG TABLET PO SCH (20:32)
[2020-06-22] VITALS: BP 142/77
[2020-06-22] MEDS ORDERED: PERCOCET 5MG/325MG TAB PO ONE (00:05)
[2020-06-22 00:26] LABS: HEMATOCRIT 42.8 % (42.0-52.0); HEMOGLOBIN 13.4 g/dl (13.5-17.5)
[2020-06-22] MEDS: PANTOPRAZOLE 40MG VIAL (C9113 PER 1) IV SCH ×2 (00:26→12:19)
[2020-06-22] MEDS: ONDANSETRON 4MG/2ML VIAL IV SCH ×6 (00:26→20:34)
[2020-06-22 05:08] LABS: BASO % 0.3 % (0.0-1.0); EOS # 0.2 10^3/uL (0.0-0.5); EOS % 1.6 % (0.0-3.0); HEMATOCRIT 38.5 % (42.0-52.0); HEMOGLOBIN 12.4 g/dl (13.5-17.5); LYMPH # 1.9 10^3/uL (1.5-5.0); LYMPH % 19.8 % (24.0-44.0); MEAN CORPUSCULAR HEMOGLOBIN 29.6 pg (27.0-33.0); MEAN CORPUSCULAR HGB CONC 32.2 g/dl (32.0-36.5); MEAN CORPUSCULAR VOLUME 91.9 fl (80.0-96.0); MONO # 1.2 10^3/uL (0.0-0.8); MONO % 12.3 % (2.0-8.0); NEUTROPHILS # 6.4 10^3/uL (1.5-8.5); NEUTROPHILS % 65.3 % (36.0-66.0); PLATELET COUNT, AUTOMATED 273 10^3/uL (150-450); RED BLOOD COUNT 4.19 10^6/uL (4.30-6.10); WHITE BLOOD COUNT 9.8 10^3/uL (4.0-10.0)
[2020-06-22 05:34] LABS: BLOOD UREA NITROGEN 5 MG/DL (7-18); CALCIUM LEVEL 8.6 MG/DL (8.5-10.1); CARBON DIOXIDE LEVEL 29 MEQ/L (21-32); CHLORIDE LEVEL 107 MEQ/L (98-107); CREATININE FOR GFR 0.66 MG/DL (0.70-1.30); GLOMERULAR FILTRATION RATE > 60.0 (>60); GLUCOSE, FASTING 87 MG/DL (70-100); MAGNESIUM LEVEL 2.2 MG/DL (1.8-2.4); POTASSIUM SERUM 3.3 MEQ/L (3.5-5.1); SODIUM LEVEL 140 MEQ/L (136-145)
[2020-06-22 08:00] VITALS: BP 128/74
[2020-06-22] MEDS ORDERED: POTASSIUM CHLORIDE 10 MEQ SR TABLET PO ONE (09:00)
[2020-06-22] MEDS: DOCUSATE SODIUM 100MG CAPSULE PO SCH ×2 (09:08→20:34)
[2020-06-22] MEDS: CYCLOBENZAPRINE 10MG TABLET PO SCH ×2 (09:08→20:34)
[2020-06-22] MEDS: SUCRALFATE 1 GM TAB PO SCH ×4 (09:09→20:34)
--- NOTE | 2020-06-22 09:14 | IPNPDOC ---
Text Note Date of Service The patient was seen on 06/22/20. NOTE Subjective: Patient is a 30-year-old male who presented to the emergency room with complaints of persistent back and abdominal pain. Patient has been experiencing back/abdominal pain since last week Tuesday and has progressed to nausea and vomiting. Upon arrival to emergency room, patient was found to have an elevated lipase and was admitted to the hospitalist service for suspected acute pancreatitis. Patient was seen and examined at the bedside. Again. Patient is still reporting some back and lower abdominal discomfort. Has not spent any nausea, vomiting, chest pain, short of breath, palpitations. Reports that he is not experiencing any further bloody bowel movements. Denies any urinary discomfort. Objective: Vitals (See below) General: Patient is laying flat on his back, does not appear to be any distress, oriented to person, place and time HEENT: Atraumatic and normocephalic CVS: +S1S2 Lungs: Air entry is fair bilaterally, again without any appreciated, rhonchi, crackles or wheezing on auscultation Abdomen: Some abdominal tenderness is noted in bilateral lower quadrants. No distention, remains soft, obese Extremities: No evidence of lower extremity edema Imaging: CT abdomen / pelvis 06/19: No acute abdominopelvic pathology appreciated. Benign right adrenal adenoma remains stable compared with 2018. CTA chest 06/19: Normal thoracic aorta without aneurysm or dissection. No evidence for pulmonary embolus. CXR 06/19: Elevated left hemidiaphragm. Cephalization. No infiltrate seen. Liver US 06/19: Small right adrenal nodule noted as on CT. Evidence of fatty infiltration of the liver. CTA abdomen / pelvis 06/21: 1. Small amount of radiodense material in the stomach, particularly at the gastric fundus, most likely recently ingested radiodense material such as bismuth. Recommend correlation with recent ingestions, as intraluminal gastric hemorrhage could alternatively cause this appearance. Also suggest correlation with patient history of melena or rectal bleeding. Fecal occult blood testing could be considered at clinical discretion. Smaller foci of increased density in mid small bowel and transverse colon are likely small volume radiodense ingested material, which has clearly moved in the colon since 06/19/2020. 2. Multiple small lymph nodes in the abdomen and pelvis, 1 of which is mildly enlarged in the portacaval region, similar to recent studies but slightly increased in size since 02/25/2017. Small nonenlarged nodes in the peripancreat ic and periportal region are similar to recent studies but slightly larger than on 02/25/2017. 3. Diffuse fatty liver change. 4. Right adrenal mass which is stable in size dating back to 02/25/2017, likely a lipid poor adenoma. 5. Small noninflamed fat containing umbilical hernia likely present. 6. No atherosclerosis or arterial occlusion noted. MRI LS Spine 06/21: Unremarkable spine. Please see details above. Assessment and plan: Abdominal / back pain - likely 2/2 musculoskeletal pain - Patient is reporting progressive back/abdominal pain that has been progressing over the duration of 1 week - Has had some improvement in pain - Lipase was noted to be elevated >3x upper limit of normal; however - likely 2/2 nausea and vomiting - Triglyceride / ethanol level are wnl; Urine drug screen positive for Opiates / Cannabinoids - Imaging noted above - c/w Clear liquids - s/p IV fluids - c/w NSAIDS and muscle relaxants Reported dark stools - Yesterday patient reported bloody bowel movement. However, does not express any further such episodes - Hg has remained stable through this entire hospitalization - Occult blood negative - c/w Protonix / Carafate - Gastroenterology on consultation; we appreciate their input; plan for EGD and colonoscopy tomorrow s/p Leukocytosis - Review of systems is negative for any source of infection - Blood cultures 06/19: Pending - Pro-calcitonin negative - Will hold off on antibiotics at this time 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) - Currently not on ASA Right adrenal mass - Imaging reports stable in size dating back to 02/25/2017, likely a lipid poor adenoma - Will have outpatient follow up with PCP Testicular cancer - [place]inoma Diagnosed in 2017 - s/p Left orchiectomy 2017 with 2 sessions of radiation Anxiety - Currently not on any medications DVT prophylaxis - c/w TEDs/Sequentials Disposition: - Awaiting clinical improvement VSEnrique, I+O VS, Enrique, I+O Laboratory Tests 06/21/20 11:41 06/21/20 17:54 06/22/20 00:11 06/22/20 04:42 Vital Signs Date Time Temp Pulse Resp B/P (MAP) Pulse Ox O2 Delivery O2 Flow Rate FiO2 06/22/20 00:57 20 94 Room Air 06/22/20 00:00 97.3 70 142/77 (98) I&O- Last 24 Hours up to 6 AM 06/22/20 05:59 Intake Total 955 ml Output Total 0 ml Balance 955 ml MELBA LOBO MD June 22, 2020 09:14
[2020-06-22 16:00] VITALS: BP 110/60
[2020-06-22] MEDS ORDERED: GOLYTELY SOLN 4000 ML BTL PO ONE (17:00)
[2020-06-22] MEDS ORDERED: BISACODYL 5 MG TAB PO ONE (18:00)
[2020-06-22] MEDS: IBUPROFEN 400MG TAB PO PRN (18:14)
[2020-06-22 20:00] VITALS: BP 149/71
[2020-06-23] MEDS: ONDANSETRON 4MG/2ML VIAL IV SCH ×5 (01:13→18:40)
[2020-06-23] MEDS: PANTOPRAZOLE 40MG VIAL (C9113 PER 1) IV SCH ×2 (01:13→11:29)
[2020-06-23 04:00] VITALS: BP 129/65
[2020-06-23] MEDS: IBUPROFEN 400MG TAB PO PRN ×2 (05:01→14:26)
[2020-06-23 06:00] LABS: BASO % 0.4 % (0.0-1.0); EOS # 0.1 10^3/uL (0.0-0.5); EOS % 1.7 % (0.0-3.0); HEMATOCRIT 38.8 % (42.0-52.0); HEMOGLOBIN 12.4 g/dl (13.5-17.5); LYMPH # 1.8 10^3/uL (1.5-5.0); LYMPH % 22.5 % (24.0-44.0); MEAN CORPUSCULAR HEMOGLOBIN 29.5 pg (27.0-33.0); MEAN CORPUSCULAR VOLUME 92.4 fl (80.0-96.0); MONO # 1.2 10^3/uL (0.0-0.8); MONO % 14.3 % (2.0-8.0); NEUTROPHILS # 4.9 10^3/uL (1.5-8.5); NEUTROPHILS % 60.4 % (36.0-66.0); PLATELET COUNT, AUTOMATED 289 10^3/uL (150-450); WHITE BLOOD COUNT 8.2 10^3/uL (4.0-10.0)
[2020-06-23 06:30] LABS: BLOOD UREA NITROGEN 4 MG/DL (7-18); CALCIUM LEVEL 8.5 MG/DL (8.5-10.1); CARBON DIOXIDE LEVEL 28 MEQ/L (21-32); CHLORIDE LEVEL 109 MEQ/L (98-107); CREATININE FOR GFR 0.79 MG/DL (0.70-1.30); GLOMERULAR FILTRATION RATE > 60.0 (>60); GLUCOSE, FASTING 91 MG/DL (70-100); MAGNESIUM LEVEL 2.1 MG/DL (1.8-2.4); POTASSIUM SERUM 3.7 MEQ/L (3.5-5.1); SODIUM LEVEL 143 MEQ/L (136-145)
[2020-06-23 07:09] VITALS: BP 125/78
[2020-06-23] MEDS: DOCUSATE SODIUM 100MG CAPSULE PO SCH (09:00)
[2020-06-23] MEDS: SUCRALFATE 1 GM TAB PO SCH ×3 (09:31→18:45)
[2020-06-23] MEDS ORDERED: CYCL-707 PO (10:50)
[2020-06-23] MEDS ORDERED: OMEP40CA97 PO (10:50)
[2020-06-23] MEDS ORDERED: DOK1CAP7 PO (10:50)
[2020-06-23] MEDS ORDERED: IBUP-1114 PO (10:50)
[2020-06-23 11:25] VITALS: BP 129/85
[2020-06-23] MEDS: CYCLOBENZAPRINE 10MG TABLET PO SCH (11:30)
--- NOTE | 2020-06-23 16:10 | DS.PDOC ---
Discharge Summary General Date of Admission June 19, 2020 at 10:59 Date of Discharge 06/23/2020 Discharge Summary PROCEDURES PERFORMED DURING STAY: Colonoscopy revealing internal and external hemorrhoids on 06/23/[address] David ADMITTING DIAGNOSES / DISCHARGE DIAGNOSES: Abdominal / back pain - likely 2/2 musculoskeletal pain Reported dark stools s/p Leukocytosis 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) Right adrenal mass Testicular cancer Anxiety DVT prophylaxis COMPLICATIONS/CHIEF COMPLAINT: Abdominal Pain / Back Pain HISTORY OF PRESENT ILLNESS: Patient is a 30-year-old male who presented to the emergency room with complaints of persistent back and abdominal pain. Patient has been experiencing back/abdominal pain since last week Tuesday and has progressed to nausea and vomiting. Upon arrival to emergency room, patient was found to have an elevated lipase and was admitted to the hospitalist service for suspected acute pancreatitis. HOSPITAL COURSE: Abdominal / back pain - likely 2/2 musculoskeletal pain - Patient is reporting progressive back/abdominal pain that has been progressing over the duration of 1 week - Currently patient's pain is well controlled / tolerable; patient has been able to get out of bed and ambulate - Denies any loss of control of bowel or bladder - Lipase was noted to be elevated >3x upper limit of normal; however - likely 2/2 nausea and vomiting - Triglyceride / ethanol level are wnl; Urine drug screen positive for Opiates / Cannabinoids - Imaging noted above - s/p IV fluids - c/w NSAIDS and muscle relaxants - Patient has been advised to follow-up with primary care provider within the next 7 days Reported dark stools - Patient has completed a bowel prep without any further evidence of bleeding - Hg has remained stable through this entire hospitalization / has not required any transfusions - Occult blood negative - Will DC Protonix / Carafate; c/w Omeprazole on discharge - s/p Colonoscopy on 06/23/2020 - non bleeding internal and external hemorrhoids - Gastroenterology on consultation - Patient has been advised to follow-up with primary care provider, and gastric nephrology within the next 7 days s/p Leukocytosis - Review of systems is negative for any source of infection - Blood cultures 06/19: Pending - Pro-calcitonin negative - Will hold off on antibiotics at this time 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) - Currently not on ASA Right adrenal mass - Imaging reports stable in size dating back to 02/25/2017, likely a lipid poor adenoma - Patient was already aware of imaging findings - Will have outpatient follow up with PCP Testicular cancer - Seminoma Diagnosed in 2017 - s/p Left orchiectomy 2017 with 2 sessions of radiation Anxiety - Currently not on any medications DVT prophylaxis - c/w TEDs/Sequentials DISCHARGE MEDICATIONS: Please see below. ALLERGIES: Please see below. PHYSICAL EXAMINATION ON DISCHARGE: Vitals (See below) General: Patient is laying in bed, appears to be comfortable without any acute distress, remains oriented to person, place and time HEENT: Is normocephalic and atraumatic CVS: +S1S2 Lungs: There appears to be fair air entry bilaterally without any evidence of wheezing, crackles or rhonchi on auscultation Abdomen: Abdomen again is soft, nondistended, some tenderness is appreciated at bilateral lower quadrants Extremities: Again, there is no edema of his lower extremities LABORATORY DATA: Please see below. IMAGING: CT abdomen / pelvis 06/19: No acute abdominopelvic pathology appreciated. Benign right adrenal adenoma remains stable compared with 2018. CTA chest 06/19: Normal thoracic aorta without aneurysm or dissection. No evidence for pulmonary embolus. CXR 06/19: Elevated left hemidiaphragm. Cephalization. No infiltrate seen. Liver US 06/19: Small right adrenal nodule noted as on CT. Evidence of fatty infiltration of the liver. CTA abdomen / pelvis 06/21: 1. Small amount of radiodense material in the stomach, particularly at the gastric fundus, most likely recently ingested radiodense material such as bismuth. Recommend correlation with recent ingestions, as intraluminal gastric hemorrhage could alternatively cause this appearance. Also suggest correlation with patient history of melena or rectal bleeding. Fecal occult blood testing could be considered at clinical discretion. Smaller foci of increased density in mid small bowel and transverse colon are likely small volume radiodense ingested material, which has clearly moved in the colon since 06/19/2020. 2. Multiple small lymph nodes in the abdomen and pelvis, 1 of which is mildly enlarged in the portacaval region, similar to recent studies but slightly increased in size since 02/25/2017. Small nonenlarged nodes in the peripancreatic and periportal region are similar to recent studies but slightly larger than on 02/25/2017. 3. Diffuse fatty liver change. 4. Right adrenal mass which is stable in size dating back to 02/25/2017, likely a lipid poor adenoma. 5. Small noninflamed fat containing umbilical hernia likely present. 6. No atherosclerosis or arterial occlusion noted. MRI LS Spine 06/21: Unremarkable spine. Please see details above. ACTIVITY: [As tolerated]. DISCHARGE PLAN: Follow up with PCP and GI within 7 days Remain compliant with treatment plan and medications Return to the ER if you experience any problems DISPOSITION: Home DISCHARGE CONDITION: [Stable]. TIME SPENT ON DISCHARGE: 35 minutes. Vital Signs/I&Os Vital Signs Date Time Temp Pulse Resp B/P (MAP) Pulse Ox O2 Delivery O2 Flow Rate FiO2 06/23/20 11:25 97.1 72 18 129/85 (100) 96 Room Air I&O- Last 24 Hours up to 6 AM 06/23/20 06:00 Intake Total 1355 ml Output Total 2275 ml Balance -920 ml Laboratory Data Labs 24H Laboratory Tests 2 06/23/20 05:43: Immature Granulocyte % (Auto) 0.7, Neutrophils (%) (Auto) 60.4, Lymphocytes (%) (Auto) 22.5L, Monocytes (%) (Auto) 14.3H, Eosinophils (%) (Auto) 1.7, Basophils (%) (Auto) 0.4, Neutrophils # (Auto) 4.9, Lymphocytes # (Auto) 1.8, Monocytes # (Auto) 1.2H, Eosinophils # (Auto) 0.1, Basophils # (Auto) 0.0, Nucleated Red Blood Cells % (auto) 0.0, Anion Gap 6L, Glomerular Filtration Rate > 60.0, Calcium Level 8.5, Magnesium Level 2.1 CBC/BMP Laboratory Tests 06/23/20 05:43 Microbiology Microbiology 06/19/20 Blood Culture - Preliminary, Resulted No Growth after 72 hours. All specime... 06/19/20 Stool Occult Blood ([facility]) - Final, Complete 06/19/20 Blood Culture - Preliminary, Resulted No Growth after 72 hours. All specime... 06/19/20 Respiratory Virus Panel (PCR) ([facility]) - Final, Complete Discharge Medications Scheduled Cyclobenzaprine HCl (Cyclobenzaprine HCl) 10 Mg Tablet, 10 MG PO BID Docusate Sodium (Dok) 100 Mg Capsule, 100 MG PO BID Omeprazole (Omeprazole) 40 Mg Capsule.dr, 1 CAP PO DAILY Scheduled PRN Ibuprofen (Ibuprofen) 400 Mg Tablet, 400 MG PO Q6HP PRN for PAIN Allergies Coded Allergies: isopropyl alcohol (Verified Allergy, Unknown, 06/14/20) MELBA LOBO MD June 23, 2020 16:10
[2020-06-23] MEDS: ACETAMINOPHEN TAB 650MG DOSE (2X325MG) PO PRN (16:15)
[2020-06-23] MEDS ORDERED: propofoL 500 MG/50 ML VIAL As Ordered ONE (17:03)
[2020-06-23] MEDS ORDERED: LIDOCAINE 2% 100MG/5ML SDV (FOR ANES.) As Ordered ONE (17:03)
--- NOTE | 2020-06-23 17:21 | CR.PDOC ---
General Date of Consultation: June 22, 2020 Referring Provider: MELBA LOBO MD Attending Physician: BECKI CARBAJAL MD Consultation REASON FOR CONSULTATION/CHIEF COMPLAINT: . HISTORY OF PRESENT ILLNESS: . ALLERGIES: Please see below. HOME MEDICATIONS: Please see below. PAST MEDICAL HISTORY: 1. . 2. . PAST SURGICAL HISTORY: 1. 2. FAMILY HISTORY: Father: Mother: Siblings: Children: Hereditary Diseases: Unexpected deaths due to medical reasons: SOCIAL HISTORY: Marital status and/or living arrangements: Children: Employment: Tobacco use: ETOH: Illicit drug use: IV drug use: Other relevant social factors: REVIEW OF SYSTEMS: CONSTITUTIONAL: . HEENT: . CARDIOVASCULAR: . RESPIRATORY: . GENITOURINARY: . MUSCULOSKELETAL: . GASTROINTESTINAL: . SKIN: . NEUROLOGICAL: . PSYCHIATRIC: . ENDOCRINE: . HEMATOLOGIC/LYMPHATIC: . ALLERGIC/IMMUNOLOGIC: . PHYSICAL EXAMINATION: VITAL SIGNS: Please see below. GENERAL APPEARANCE: . HEENT: . RESPIRATORY: . CARDIOVASCULAR: . ABDOMEN: . EXTREMITIES: . NEUROLOGICAL: . PSYCHIATRIC: . LABORATORY DATA: Please see below. ASSESSMENT/PLAN: 1. . 2. . Vital Signs/I&O Vital Signs Date Time Temp Pulse Resp B/P (MAP) Pulse Ox O2 Delivery O2 Flow Rate FiO2 06/23/20 11:25 97.1 72 18 129/85 (100) 96 Room Air I&O- Last 24 Hours up to 6 AM 06/23/20 06:00 Intake Total 1355 ml Output Total 2275 ml Balance -920 ml Laboratory Data Labs 24H Laboratory Tests 2 06/23/20 05:43: Immature Granulocyte % (Auto) 0.7, Neutrophils (%) (Auto) 60.4, Lymphocytes (%) (Auto) 22.5L, Monocytes (%) (Auto) 14.3H, Eosinophils (%) (Auto) 1.7, Basophils (%) (Auto) 0.4, Neutrophils # (Auto) 4.9, Lymphocytes # (Auto) 1.8, Monocytes # (Auto) 1.2H, Eosinophils # (Auto) 0.1, Basophils # (Auto) 0.0, Nucleated Red Blood Cells % (auto) 0.0, Anion Gap 6L, Glomerular Filtration Rate > 60.0, Calcium Level 8.5, Magnesium Level 2.1 CBC/BMP Laboratory Tests 06/23/20 05:43 Microbiology Microbiology 06/19/20 Blood Culture - Preliminary, Resulted No Growth after 72 hours. All specime... 06/19/20 Stool Occult Blood ([facility]) - Final, Complete 06/19/20 Blood Culture - Preliminary, Resulted No Growth after 72 hours. All specime... 06/19/20 Respiratory Virus Panel (PCR) ([facility]) - Final, Complete Allergies Coded Allergies: isopropyl alcohol (Verified Allergy, Unknown, 06/14/20) Home Medications Scheduled Cyclobenzaprine HCl (Cyclobenzaprine HCl) 10 Mg Tablet, 10 MG PO BID for 6 Days, #12 Docusate Sodium (Dok) 100 Mg Capsule, 100 MG PO BID for 30 Days, #60 Omeprazole (Omeprazole) 40 Mg Capsule.dr, 1 CAP PO DAILY for 30 Days, #30 Scheduled PRN Ibuprofen (Ibuprofen) 400 Mg Tablet, 400 MG PO Q6HP PRN for PAIN for 10 Days, #40 Ondansetron (Ondansetron Odt) 4 Mg Tab.rapdis, 4 MG PO Q6H PRN for NAUSEA OR VOMITING, (Reported) BECKI CARBAJAL MD June 23, 2020 17:21
[2020-06-23] MEDS ORDERED: ONDANSETRON 4MG/2ML VIAL As Ordered ONE (17:27)
[2020-06-23] MEDS ORDERED: propofoL 200 MG/20 ML VIAL As Ordered ONE (17:46)
--- NOTE | 2020-06-23 17:57 | ROOR ---
Patient Name: Rommel Mcdaniel Procedure Date: 06/23/2020 4:59 PM Date of : 1990 Age: 30 Room: Main OR Gender: Male Note Status: Finalized Procedure: Colonoscopy Indications: Hematochezia, Rectal bleeding Providers: Odell David MD Referring MD: 2. Inpatient 2. Inpatient Requesting Provider: Medicines: Monitored Anesthesia Care Complications: No immediate complications. Procedure: Pre-Anesthesia Assessment: - Prior to the procedure, a History and Physical was performed, and patient medications and allergies were reviewed. The patient is competent. The risks and benefits of the procedure and the sedation options and risks were discussed with the patient. All questions were answered and informed consent was obtained. Patient identification and proposed procedure were verified by the physician, the nurse and the anesthesiologist in the procedure room. Mental Status Examination: alert and oriented. Airway Examination: normal oropharyngeal airway and neck mobility. Respiratory Examination: clear to auscultation. CV Examination: normal. Prophylactic Antibiotics: The patient does not require prophylactic antibiotics. Prior Anticoagulants: The patient has taken no previous anticoagulant or antiplatelet agents. ASA Grade Assessment: III - A patient with severe systemic disease. After reviewing the risks and benefits, the patient was deemed in satisfactory condition to undergo the procedure. The anesthesia plan was to use monitored anesthesia care (MAC). Immediately prior to administration of medications, the patient was re-assessed for adequacy to receive sedatives. The heart rate, respiratory rate, oxygen saturations, blood pressure, adequacy of pulmonary ventilation, and response to care were monitored throughout the procedure. The physical status of the patient was re-assessed after the procedure. The Colonoscope was introduced through the anus and advanced to the terminal ileum, with identification of the appendiceal orifice and IC valve. The colonoscopy was performed without difficulty. The patient tolerated the procedure well. The quality of the bowel preparation was good. The terminal ileum, ileocecal valve, appendiceal orifice, and rectum were photographed. Scope insertion time was 2 minutes. Scope withdrawal time was 8 minutes. The total duration of the procedure was 10 minutes. Findings: The perianal and digital rectal examinations were normal. The terminal ileum appeared normal. A 6 mm polyp was found in the recto-sigmoid colon. The polyp was sessile. The polyp was removed with a cold snare. Resection and retrieval were complete. Verification of patient identification for the specimen was done by the physician and nurse using the patient's name, date and medical record number. Estimated blood loss was minimal. Non-bleeding external and internal hemorrhoids were found during retroflexion. The hemorrhoids were medium-sized. No other significant abnormalities were identified in a careful examination of the remainder of the colon. Impression: - The examined portion of the ileum was normal. - One 6 mm polyp at the recto-sigmoid colon, removed with a cold snare. Resected and retrieved. - Non-bleeding external and internal hemorrhoids. Recommendation: - Patient has a contact number available for emergencies. The signs and symptoms of potential delayed complications were discussed with the patient. Return to normal activities tomorrow. Written discharge instructions were provided to the patient. - High fiber diet. - Continue present medications. - Use fiber, for example Citrucel, Fibercon, Konsyl or Metamucil. - Repeat colonoscopy in 5-10 years for surveillance based on pathology results. - Telephone GI clinic for pathology results in 2 weeks. - Return to GI clinic if persistent symptoms or new symptoms. - Return to primary care physician. Procedure Code(s): --- Professional --- 75260, Colonoscopy, flexible; with removal of tumor(s), polyp(s), or other lesion(s) by snare technique Diagnosis Code(s): --- Professional --- K64.8, Other hemorrhoids K63.5, Polyp of colon K92.1, Melena (includes Hematochezia) K62.5, Hemorrhage of anus and rectum CPT copyright 2019 [employer]. All rights reserved. The codes documented in this report are preliminary and upon clothes designer review may be revised to meet current compliance requirements. Odell David MD Odell David MD 06/23/2020 5:56:50 PM Electronically signed by Odell David MD Number of Addenda: 0 Note Initiated On: 06/23/2020 4:59 PM Estimated Blood Loss: Estimated blood loss was minimal.
[2020-06-23 18:20] VITALS: BP 112/71
== END 2020-06-23 19:50 | disposition home or self-care (01) | DRG 251 ==
LOC: M ED 07:35 → M ED INP 10:59 → ENRESERV 12:04 → M PCU 13:26
PROVIDERS: ADMIT Internal Medicine; ATTEND Internal Medicine
PROC: 0DBN8ZX Excision of Sigmoid Colon, Via Natural or Artificial Opening Endoscopic, Diagnostic (ICD-10-PCS; principal; 2020-06-23 16:30)
DX: R10.9 Unspecified abdominal pain (principal); E27.8 Other specified disorders of adrenal gland; K76.0 Fatty (change of) liver, not elsewhere classified; M54.9 Dorsalgia, unspecified; K63.5 Polyp of colon; K64.8 Other hemorrhoids; R11.2 Nausea with vomiting, unspecified; F41.9 Anxiety disorder, unspecified; Z86.73 Personal history of transient ischemic attack (TIA), and cerebral infarction without residual deficits; D72.829 Elevated white blood cell count, unspecified; Z85.47 Personal history of malignant neoplasm of testis; Z92.3 Personal history of irradiation; Z88.8 Allergy status to other drugs, medicaments and biological substances; F17.200 Nicotine dependence, unspecified, uncomplicated; K62.5 Hemorrhage of anus and rectum